=== PATIENT | female | born 1945 | race Caucasian/White ===

== ENCOUNTER → 2016-08-01 | Outpatient (CLI) | payer OTHER ==
[~2016-08-01] MED LIST: ACETAMINOPHEN PR; ADVAIR 250-501 EACH IH; ADVAIR 250-501 EACH PO; ADVAIR 2501 DISK W/D; ADVAIR 2501 DISK W/D PO; ALBUTEROL17 GM; ALBUTEROL17 GM INH; ALDACTONE25 MG PO; AMARYL PO; AMBIEN10 MG PO; ANORO ELLIPTA1 EACH INH; ANTIVERT PO; ANUSOL SUPP1 SUPP PR; APPEAREX2500 MC1 PO; ASPIR-TRIN325 MG PO; ASPIRIN PO; ATENOLOL PO; AUGMENTIN PO; B-COMPLEX W/VIT1 TA1 PO; CECLOR PO; CIPRO PO; CLARITIN10 M1 PO; CLARITIN10 M3 DOB; COLESTID PO; CRESTOR PO; CRESTOR40 MG PO; CYCLOBENZAPRINE5 MG PO; DALIRESP500 MCG PO; EFFEXOR PO; EFFIENT10 MG PO; FENOFIBRATE160 MG PO; FERROUS GLUCONATE; FINACEA 15%; FISH OIL 1,0001 CAP PO; FLONASE 0.05% N16 G1; FLONASE16 GM; FLONASE16 GM INH; FORTAMET PO; FUROSEMIDE40 MG PO; GABAPENTIN600 MG PO; GLUCOPHAGE XR500 MG; GLUCOPHAGE XR500 MG PO; HARD NAILS2500 MCG PO; HCTZ PO; HUMALOG MIX 75/23 ML SQ; HUMALOG100 U/ML SUBQ; HUMIBID-LA600 MG PO; HYDROCODONE/APA1 T16 PO; IBUPROFEN; IRON PO; JANUMET 50-1,1 UDTAB PO; JANUVIA PO; K-DUR20 ME2 PO; K-LOR20 MEQ PO; KCL PO; LAC-HYDRIN LOT225 GM EXT; LAC-HYDRIN225 GM TOP; LANTUS SOLOSTAR3 ML SUBQ; LANTUS100 U/ML INJ; LASIX PO; LEVAQUIN PO; LEVAQUIN750 MG PO; LEVEMIR; LEVEMIR100 U/ML SUBQ; LIPITOR PO; LOMOTIL TABLET1 TAB PO; LORAZEPAM1 MG PO; LORCET 10/650 T1 TAB PO; LORTAB 10-5001 EACH PO; LORTAB 10/500 T1 TAB PO; MEDROL DOSEPAK4 MG PO; METOPROLOL TAR100 MG PO; MICRO-K PO; MONTELUKAST SOD10 MG PO; MULTI-VITAMIN1 TAB PO; NABUMETONE PO; NEURONTIN PO; NEXIUM PO; NIASPAN PO; NITROGLYGERIN0.4 MG SL; NITROSTAT0.4 MG SL; NORCO 5/325 TAB1 TAB PO; NORVASC2.5 MG PO; NOVOLIN 70/30 V10 M1 SUBQ; NOVOLOG100 U/M1 SUBQ; NYSTATIN5 ML PO; OMEGA-31000 M1 PO; OMEPRAZOLE20 M2 PO; PHENERGAN25 M1 PO; PLAVIX PO; PREDNISONE PO; PREMARIN PO; PREMARIN0.3 MG PO; PRENATAL1 TA1 PO; PROAIR HFA8.5 GM IH; PROAIR HFA8.5 GM INH; PROVENTIL17 GM PO; ROBAXIN PO; SINGULAIR PO; SPIRIVA18 MCG INH; SYMBICORT80 INH; TRICOR PO; TRIGLIDE PO; VASOTEC PO; VIIBRYD10 MG PO; VIT E; VIT E PO; VITAMIN B COMPLEX PO; VOL-CARE RX TA1 EACH PO; VYTORIN 10/40 T1 TAB; VYTORIN 10/80 T1 TAB; ZAROXYLYN; ZESTRIL5 MG PO; ZITHROMAX PO; ZOLOFT PO
--- NOTE | ~2016-08-01 | CR58 ---
[facility]. [facility] A Service of [facility] & [facility] RADIOLOGY TEXT RESULTS PATIENT: ELIAS COONEY LOCATION: [facility] : 45 UNIT #: [id number] AGE: [address]: Markus Hernandez MD SEX: F ORDER DR: [id number] [place] [id number] O MR#: [id number] Acc #: [id number] NAME: ELIAS COONEY : 1945 SEX: F STUDY DATE/TIME: 08/01/2016 11:41 UNIT: [facility] ROOM: STUDY DESCRIPTION: CR Cervical Spine 2 or 3 Views Attending Physician: Markus Hernandez M.D. Referring Physician: Markus Hernandez M.D. Ordering Physician: Markus Hernandez M.D. Primary Care Physician: Markus Hernandez M.D. MEDICAL IMAGING REPORT This report is preliminary unless electronic signature is present. EXAM Cervical spine, 3 views, 08/01. COMPARISON STUDY Flexion/extension views from 12/11/11. FINDINGS AP, lateral and open mouth views are obtained. Surgical fusion at the C5-6 level. C6-7 appears essentially fused as well. Alignment is satisfactory. There is no subluxation or acute fractures. CONCLUSION Postop fusion at C5-6 and possibly C6-7. No change in alignment. Dictated by... Massimo Lim M.D. THIS IS AN ELECTRONICALLY VERIFIED REPORT Massimo Lim M.D. at 08/04/2016 9:22 AM JENNY/kaye TD: 08/01/2016 19:38 JOB #: [id number] MEDICAL IMAGING REPORT Page 1 of 1
== END | disposition home or self-care (01) ==
LOC: SRAD 11:34
DX: M54.2 Cervicalgia (principal); Z98.1 Arthrodesis status
CPT/HCPCS: 72040